=== PATIENT | male | born 1980 | race Caucasian/White ===

== ENCOUNTER 2020-06-02 11:18 | Outpatient (CLI) | payer OTHER ==
[2020-06-02 12:09] LABS: ALT (SGPT) 28 U/L (8-55); AST (SGOT) 23 U/L (5-34); Albumin 4.2 g/dL (3.5-5.0); Alkaline Phosphatase 88 U/L (40-110); Anion Gap 12 mmol/L (10-20); BUN (Urea Nitrogen) 12 mg/dL (8.9-20.6); Bilirubin, Total 0.2 mg/dL (0.2-1.2); Calc. Creatinine Clearance 0 mL/min (70-130); Calcium 9.1 mg/dL (7.8-10.44); Carbon Dioxide 28 mmol/L (22-29); Cardiac Risk 2.5 (Less than 4.5); Chloride 104 mmol/L (98-107); Cholesterol 125 mg/dl (< 200 Desired); Globulin 2.4 g/dL (2.4-3.5); Glucose 92 mg/dL (70-105); HDL Cholesterol 50 mg/dL (>60 Neg Risk); LDL Cholesterol, Calculated 68 mg/dL; Protein, Total 6.6 g/dL (6.0-8.3); Sodium 140 mmol/L (136-145); Triglycerides 36 mg/dL (Less than 150)
[2020-06-02 12:51] LABS: Band 2 % (5-11); Eosinophils 5 % (0-10); Hemoglobin 14.1 g/dL (14.0-18.0); Lymphocytes 29 % (21-51); MDiff Complete? YES; Mean Corpuscular HGB CONC 32.9 g/dL (32.0-36.0); Mean Corpuscular Hemoglobin 31.2 pg (27.0-31.0); Mean Corpuscular Volume 94.7 fL (78.0-98.0); Mean Platelet Volume 7.1 fL (7.4-10.4); Metamyelocyte 1 % (0-0); Monocytes 17 % (0-10); Neutrophil 44 % (42-75); Platelet Count 309 thou/uL (130-400); RBC Distribution Width 11.5 % (11.5-14.5); Red Blood Cell (RBC) Count 4.52 mill/uL (4.70-6.10); White Blood Cell (WBC) Count 5.2 thou/uL (4.8-10.8)
== END 2020-06-02 11:19 | disposition home or self-care (01) ==
LOC: BURLAB 11:18
PROVIDERS: ATTEND Family Medicine
DX: Z13.6 Encounter for screening for cardiovascular disorders (principal); R53.83 Other fatigue
CPT/HCPCS: 36415; 80053; 80061; 84443; 85025